=== PATIENT | female | born 1965 | race Caucasian/White ===

== ENCOUNTER → 2018-08-05 | Outpatient (CLI) | payer MEDICARE, OTHER ==
[2018-08-05 15:26] VITALS: BP 119/84; PULSE 86; TEMP 98.6; BMI 29.8
--- NOTE | 2018-08-05 16:40 | P.PN ---
Subjective Progress Note Date: 08/05/18 DATE OF SERVICE: 08/05/2018 REASON FOR CONSULTATION: Initial bariatric evaluation. HISTORY OF PRESENT ILLNESS: Nichole Duval is a 53-year-old female who comes with lack of restriction from her adjustable gastric band. No reports of nausea or vomiting. She presents to me first time in consultation. No reports of abdominal pain. She comes in with her band. She reports no restriction. At height of 5 feet 4 inches, her ideal body weight is 144 pounds. She comes in 174 pounds. Her body mass index is 29.6. She is 30 pounds overweight. PAST MEDICAL HISTORY: 1. Morbid obesity due to excess calories 2. Body mass index of 29.6 3. Gastroesophageal reflux disease 4. Hypertensive heart disease 5. Hyperlipidemia 6. Fibromyalgia 7. Peripheral neuropathy 8. History of MRSA 9. Discharge joint disease PAST SURGICAL HISTORY: 1. Panniculectomy 2. Cervical fusion 3. Lumbar fusion 4. LAP-BAND procedure, 2009 5. Left arthroscopic shoulder surgery HOME MEDICATIONS: ALLERGIES: Home Medications Medication Instructions Recorded Confirmed Atorvastatin [Lipitor] 80 mg PO DAILY 06/25/18 08/05/18 HYDROcodone/APAP 10-325MG [[place] 1 tab PO BID 06/25/18 08/05/18 10-325] Lisinopril-Hctz 20-25 mg 1 tab PO DAILY 06/25/18 08/05/18 [Zestoretic 20-25] Nortriptyline HCl [Pamelor] 50 mg PO HS 06/25/18 08/05/18 Ranitidine HCl 150 mg PO BID 06/25/18 08/05/18 tiaGABine HCL [Tiagabine HCl] 2 mg PO QAM 06/25/18 08/05/18 B,C/Folic/Zinc/Copper Ox/Vit E 1 each PO DAILY 08/05/18 08/05/18 [Stress B-Complex Tablet] Cetirizine HCl [Zyrtec] 10 mg PO DAILY 08/05/18 08/05/18 Cholecalciferol (Vitamin D3) 1,000 unit PO DAILY 08/05/18 08/05/18 [Vitamin D3] Magnesium Oxide [Mag-Ox] 250 mg PO DAILY 08/05/18 08/05/18 tiaGABine HCL [Tiagabine HCl] 4 mg PO HS 08/05/18 08/05/18 Allergies Allergy/AdvReac Type Severity Reaction Status Date / Time Penicillins Allergy Rash/Hives Verified 06/25/18 10:01 SOCIAL HISTORY: Past tobacco use. FAMILY HISTORY: No family history of ulcerative colitis disease or Crohn's disease. Family history of morbid obesity. No lupus in the family. No reports of stomach or esophageal cancer. REVIEW OF ORGAN SYSTEMS: CONSTITUTIONAL: At height of 5 feet 4 inches, her ideal body weight is 144 pounds. She comes in 174 pounds. Her body mass index is 29.6. She is 30 pounds overweight. HEENT: Denies any active troubles with vision or hearing. ENDOCRINE: Has diabetes. No hypothyroidism. CARDIOVASCULAR: Past reports of palpitations or heart attacks or chest pain. Has hypertension. RESPIRATORY: Has daytime somnolence. Has asthma. GASTROINTESTINAL: Denies any bright red blood per rectum. No diarrhea. No constipation. Has hyperlipidemia. MUSCULOSKELETAL: Has lower back pain and joint pain. Has osteoarthritis of the knees. NEURO: No headaches. No seizure disorders. PSYCH: Has depression. No suicidal ideation. RHEUMATOLOGIC: No lupus. No rheumatoid arthritis. HEMATOLOGIC: Denies any abnormal bleeding or bruising. No personal history of DVTs SKIN: No rash. No skin cancer. PHYSICAL EXAM: VITAL SIGNS: Height 5 foot 4 inches, weight 174 pounds. BMI 29.9 Vital Signs Temp 98.6 F 08/05/18 14:38 Pulse 86 08/05/18 14:38 Resp BP 119/84 08/05/18 14:38 Pulse Ox GENERAL: Well-developed in no acute distress. HEENT: No scleral icterus. Extraocular movements grossly intact. Hears conversational speech. No nasal drainage. NECK: Supple without lymphadenopathy. CHEST: Nonlabored respirations with equal bilateral excursions. CARDIOVASCULAR: Regular rate and regular rhythm. Distal 2+ pulses. ABDOMEN: Obese, soft, nontender, nondistended. Lap band port palpated along the left upper quadrant. MUSCULOSKELETAL: No clubbing, cyanosis. Gross strength 5/5 distal lower extremities. NEURO: No focal or lateralizing signs. Cranial nerves 2 through 12 grossly within normal limits. PSYCH: Appropriate affect. Alert and oriented to person, place and time. SKIN: Good skin turgor. Well perfused. ASSESSMENT: 1. Morbid obesity due to excess calories 2. Body mass index of 29.6 3. Gastroesophageal reflux disease 4. Hypertensive heart disease 5. Hyperlipidemia 6. Fibromyalgia 7. Peripheral neuropathy 8. History of MRSA 9. Discharge joint disease 10. Adjustable gastric band status PLAN: 1. Recommend band adjustment. PROCEDURE: After verbal consent, patient was laid supine. Adjustable gastric band was palpated at left upper quadrant. No erythema identified. Skin was cleansed with chloraprep. Using 22-gauge hueber needle, the band was access. While drinking water, her band was adjusted. Normal saline 3 mL of fluid was placed. She tolerated the procedure well. Thank you for this consultation. Objective - Vital Signs Vital signs: Vital Signs Temp 98.6 F 08/05/18 14:38 Pulse 86 08/05/18 14:38 Resp BP 119/84 08/05/18 14:38 Pulse Ox Intake & Output 08/04/18 08/05/18 08/05/18 18:59 06:59 18:59 Weight 78.925 kg
== END | disposition home or self-care (01) ==
LOC: BARWHC3 13:52
PROVIDERS: ATTEND Surgery Plastic and Reconstructive Surgery
DX: Z48.815 Encounter for surgical aftercare following surgery on the digestive system (principal); E66.01 Morbid (severe) obesity due to excess calories; Z68.29 Body mass index [BMI] 29.0-29.9, adult; K21.9 Gastro-esophageal reflux disease without esophagitis; E78.5 Hyperlipidemia, unspecified; M79.7 Fibromyalgia; G62.9 Polyneuropathy, unspecified; I11.9 Hypertensive heart disease without heart failure; M25.80 Other specified joint disorders, unspecified joint; Z86.14 Personal history of Methicillin resistant Staphylococcus aureus infection; Z98.84 Bariatric surgery status; Z72.0 Tobacco use; Z88.0 Allergy status to penicillin; Z79.899 Other long term (current) drug therapy; Z79.891 Long term (current) use of opiate analgesic
CPT/HCPCS: 99212

== ENCOUNTER → 2019-10-01 | Outpatient (CLI) | payer MEDICARE ==
[2019-10-01 13:35] LABS: HGB 13.8 gm/dL (11.4-16.0); MCH 27.6 pg (25.0-35.0); MCV 86.1 fL (80.0-100.0); Mean Platelet Volume 6.8; Platelet Count 293 k/uL (150-450); RDW 13.4 % (11.5-15.5); WBC 6.4 k/uL (3.8-10.6)
[2019-10-01 17:44] LABS: % Iron Saturation 24.51 (12.00-45.00); Albumin 4.5 g/dL (3.80-4.90); Albumin/Globulin Ratio 1.96 (1.60-3.17); Anion Gap 7.1 mmol/L (4.00-12.00); Calcium 9.4 mg/dL (8.7-10.3); Carbon Dioxide 28.9 mmol/L (21.6-31.8); Chol/HDL Ratio 4.93; Globulin 2.3 g/dL (1.6-3.3); Magnesium 1.8 mg/dL (1.5-2.4); Non-African American GFR(CKD) 64.7 (60.0-200.0); Phosphorus 3.5 mg/dL (2.4-5.1); Potassium 3.8 mmol/L (3.5-5.5); Total Bilirubin 0.5 mg/dL (0.3-1.2); Total Protein 6.8 g/dL (6.2-8.2)
[2019-10-01 17:51] LABS: Ferritin 62.8 ng/mL (10.0-291.0)
[2019-10-01 17:53] LABS: Folate, Serum 9.1 ng/mL
[2019-10-01 19:02] LABS: INR 0.93 (0.90-1.11); Partial Thromboplastin Time 29.4 sec (24.7-29.9)
[2019-10-02 04:18] LABS: Hemoglobin A1C 5.2 % (4.0-6.0)
[2019-10-04 15:20] LABS: Zinc, Serum 80 ug/dL (60-130)
[2019-10-05 10:02] LABS: Vitamin A 64 ug/dL (38-106)
[2019-10-06 12:41] LABS: Vit B1(Thiamine) 80 ug/L (38-122)
[2019-10-06 18:10] LABS: Selenium 101 mcg/L (63-160)
== END | disposition home or self-care (01) ==
LOC: LABWHC1 12:41
PROVIDERS: ATTEND Surgery Plastic and Reconstructive Surgery
DX: E21.1 Secondary hyperparathyroidism, not elsewhere classified (principal); E89.1 Postprocedural hypoinsulinemia; D50.9 Iron deficiency anemia, unspecified; K90.9 Intestinal malabsorption, unspecified; E55.9 Vitamin D deficiency, unspecified; K74.1 Hepatic sclerosis; N19 Unspecified kidney failure; K50.90 Crohn's disease, unspecified, without complications
CPT/HCPCS: 36415; 80053; 80061; 82306; 82525; 82607; 82728; 82746; 83036; 83540; 83550; 83735; 83970; 84100; 84134; 84255; 84425; 84443; 84590; 84630; 85027; 85610; 85730; 93005

== ENCOUNTER 2019-12-13 06:16 | Day surgery (SDC) | payer MEDICARE ==
[2019-12-08 09:53] VITALS: BMI 31.4
--- NOTE | 2019-12-13 04:33 | P.GSHP ---
History of Present Illness H&P Date: 12/13/19 DATE OF SERVICE: 12/13/2019 CHIEF COMPLAINT: Complications adjustable gastric band HISTORY OF PRESENT ILLNESS: Nichole Duval is a 54-year-old female who comes with complications from her adjustable gastric band including pain and intolerance to band adjustments. She had her band since 2009. Her highest weight was 230 pounds, BMI 39.6. Her total lifetime weight loss is 41 pounds, 48% excess weight loss, lifetime. At height of 5 feet 4 inches, her ideal body weight is 144 pounds. She comes in 189 pounds from 174 pounds, 1 year ago. She has gained 15 pounds in over 1 year. Her body mass index is 32.4. She is 45 pounds overweight. PAST MEDICAL HISTORY: 1. Morbid obesity due to excess calories 2. Body mass index 39.6, initial 3. Gastroesophageal reflux disease 4. Hypertensive heart disease 5. Hyperlipidemia 6. Fibromyalgia 7. Peripheral neuropathy 8. History of MRSA 9. Degenerative joint disease PAST SURGICAL HISTORY: 1. Panniculectomy 2. Cervical fusion 3. Lumbar fusion 4. LAP-BAND procedure, 2009 5. Left arthroscopic shoulder surgery HOME MEDICATIONS: ALLERGIES: Home Medications Medication Instructions Recorded Confirmed HYDROcodone/APAP 10-325MG [[place] 1 tab PO BID 06/25/18 12/08/19 10-325] Lisinopril-Hctz 20-25 mg 1 tab PO DAILY 06/25/18 12/08/19 [Zestoretic 20-25] Nortriptyline HCl [Pamelor] 50 mg PO HS 06/25/18 12/08/19 Fluticasone Nasal [place] [Flonase 2 spr EA NOSTRIL DIRECTED PRN 12/08/19 12/08/19 Nasal [place]] Loratadine [Claritin] 10 mg PO DAILY 12/08/19 12/08/19 Allergies Allergy/AdvReac Type Severity Reaction Status Date / Time Penicillins Allergy Rash/Hives Verified 12/08/19 09:41 SOCIAL HISTORY: Past tobacco use. FAMILY HISTORY: No family history of ulcerative colitis disease or Crohn's disease. Family history of morbid obesity. No lupus in the family. No reports of stomach or esophageal cancer. REVIEW OF ORGAN SYSTEMS: CONSTITUTIONAL: At height of 5 feet 4 inches, her ideal body weight is 144 pounds. She comes in 174 pounds. Her body mass index is 29.6. She is 30 pounds overweight. Highest weight 230 pounds. HEENT: Denies any active troubles with vision or hearing. ENDOCRINE: Has diabetes. No hypothyroidism. CARDIOVASCULAR: Past reports of palpitations or heart attacks or chest pain. Has hypertension. RESPIRATORY: Has daytime somnolence. Has asthma. GASTROINTESTINAL: Denies any bright red blood per rectum. No diarrhea. No co nstipation. Has hyperlipidemia. MUSCULOSKELETAL: Has lower back pain and joint pain. Has osteoarthritis of the knees. NEURO: No headaches. No seizure disorders. PSYCH: Has depression. No suicidal ideation. RHEUMATOLOGIC: No lupus. No rheumatoid arthritis. HEMATOLOGIC: Denies any abnormal bleeding or bruising. No personal history of DVTs SKIN: No rash. No skin cancer. PHYSICAL EXAM: VITAL SIGNS: Height 5 foot 4 inches, weight 189 pounds. BMI 39.6 GENERAL: Well-developed in no acute distress. HEENT: No scleral icterus. Extraocular movements grossly intact. Hears conversational speech. No nasal drainage. NECK: Supple without lymphadenopathy. CHEST: Nonlabored respirations with equal bilateral excursions. CARDIOVASCULAR: Regular rate and regular rhythm. Distal 2+ pulses. ABDOMEN: Obese, soft, nontender, nondistended. Lap band port palpated along the left upper quadrant. MUSCULOSKELETAL: No clubbing, cyanosis. NEURO: No focal or lateralizing signs. Cranial nerves 2 through 12 grossly within normal limits. PSYCH: Appropriate affect. Alert and oriented to person, place and time. SKIN: Good skin turgor. Well perfused. ASSESSMENT: 1. Morbid obesity due to excess calories 2. Body mass index 39.6, initial 3. Gastroesophageal reflux disease 4. Hypertensive heart disease 5. Hyperlipidemia 6. Fibromyalgia 7. Peripheral neuropathy 8. History of MRSA 9. Degenerative joint disease 10. Complications from adjustable gastric band PLAN: 1. With complications of her adjustable gastric band, recommend removal of all components. 2. Robotic laparoscopic approach advised. 3. DVT prophylaxis. 4. Antibiotic prophylaxis. Past Medical History Past Medical History: Fibromyalgia, GERD/Reflux, Hyperlipidemia, Hypertension, Neurologic Disorder, Osteoarthritis (OA) Additional Past Medical History / Comment(s): ddd, raynauds, peripheral neuropathy, fibromyalgia History of Any Multi-Drug Resistant Organisms: MRSA Date of last positivie culture/infection: 2011 MDRO Source:: panniculectomy incision Past Surgical History: Back Surgery, Bariatric Surgery, Hysterectomy, Orthopedic Surgery Additional Past Surgical History / Comment(s): lap band 2010 panniculectomy, ce rvical fusion x 6, lumbar fusion, arthroscopic right thumb & wrist, left shoulder, and bilateral ankle surgery, right toe, Past Anesthesia/Blood Transfusion Reactions: No Reported Reaction Smoking Status: Former smoker Medications and Allergies Home Medications Medication Instructions Recorded Confirmed Type HYDROcodone/APAP 10-325MG [[place] 1 tab PO BID 06/25/18 12/08/19 History 10-325] Lisinopril-Hctz 20-25 mg 1 tab PO DAILY 06/25/18 12/08/19 History [Zestoretic 20-25] Nortriptyline HCl [Pamelor] 50 mg PO HS 06/25/18 12/08/19 History Fluticasone Nasal [place] [Flonase 2 spr EA NOSTRIL DIRECTED PRN 12/08/19 12/08/19 History Nasal [place]] Loratadine [Claritin] 10 mg PO DAILY 12/08/19 12/08/19 History Allergies Allergy/AdvReac Type Severity Reaction Status Date / Time Penicillins Allergy Rash/Hives Verified 12/08/19 09:41
[~2019-12-13 06:16] MED LIST: ACETAMINOPHEN TAB 500 MG TAB PO STA; CHLORHEXIDINE GLUCONATE 15 ML CUP MUCOUS MEM ONE; DEXAMETHASONE SOD PHOSPHATE 10 MG/ML 1 ML VIAL IV STA; ENOXAPARIN 40 MG/0.4 ML SYRINGE SQ STA; GABAPENTIN 300 MG CAP PO STA; KETOROLAC 15 MG/ML 1 ML VIAL IVP PRN; LACTATED RINGERS 1,000 ML IV SCH; PANTOPRAZOLE 40 MG/10 ML VIAL IV STA; SCOPOLAMINE 1.5MG/72HR PATCH TRANSDERM STA; diphenhydrAMINE 50 MG/ML 1 ML VIAL IVP STA
--- NOTE | 2019-12-13 07:01 | P.HPADDEND ---
H&P Addendum H&P Addendum Date: 12/13/19 Robotic assisted approach reviewed. Abdominal wall block described for optimal pain management.
[2019-12-13] MEDS ORDERED: LIDOCAINE 1% (10MG/ML) FOR IV START INTRADERMA ONE (07:02)
[2019-12-13] MEDS ORDERED: ONDANSETRON 4 MG/2 ML VIAL ONE ×2 (07:06→11:10)
[2019-12-13] MEDS ORDERED: MIDAZOLAM 2 MG/2 ML VIAL IV ONE (07:11)
[2019-12-13] MEDS ORDERED: fentaNYL (PF) 50 MCG/ML 2 ML AMP IV ONE (07:11)
[2019-12-13 07:18] LABS: HCT 42.5 % (34.0-46.0); HGB 13.8 gm/dL (11.4-16.0); MCH 27.6 pg (25.0-35.0); MCHC 32.5 g/dL (31.0-37.0); MCV 84.9 fL (80.0-100.0); Mean Platelet Volume 7.1; Platelet Count 328 k/uL (150-450); RBC 5.01 m/uL (3.80-5.40); RDW 13.3 % (11.5-15.5)
--- NOTE | 2019-12-13 07:27 | P.ANPRN ---
Procedure Note - Anesthesia - Nerve Block Performed Bilateral Rectus Abdominis Single Time Out Performed: Yes Date of Procedure: 12/13/19 Procedure Start Time: :11 Procedure Stop Time: : Location of Patient: PreOp Indication: Requested by Surgeon Specifically requested for management of pain by DrElvia: Karis Booker Sedation Type: Sedate with meaningful contact maintained Preparation: Sterile Prep Position: Supine Needle Types: Pajunk Needle Gauge: 21 Ultrasound used to visualize needle placement: Yes Ultrasound used to observe medication spread: Yes Injectate: 0.5% Ropivacaine (see comment for volume) (15 ml per side plus Dexamethasone 4 mg) Blood Aspirated: No Pain Paresthesia on Injection Noted: No Resistance on Injection: Normal Image Stored and Saved: Yes Events: Uneventful and Well Tolerated
[2019-12-13 07:28] LABS: ALT 16 U/L (4-34); AST 26 U/L (14-36); African American GFR (CKD) >90 (>60 ml/min/1.73 sqM); Albumin 4.1 g/dL (3.5-5.0); Alkaline Phosphatase 129 U/L (38-126); Anion Gap 6 mmol/L; Blood Urea Nitrogen 18 mg/dL (7-17); Calcium 9.5 mg/dL (8.4-10.2); Carbon Dioxide 29 mmol/L (22-30); Chloride 107 mmol/L (98-107); Glucose 96 mg/dL (74-99); Non-African American GFR(CKD) 79 (>60 ml/min/1.73 sqM); Potassium 4.2 mmol/L (3.5-5.1); Sodium 142 mmol/L (137-145); Total Bilirubin 0.6 mg/dL (0.2-1.3); Total Protein 6.9 g/dL (6.3-8.2)
[2019-12-13] MEDS ORDERED: fentaNYL (PF) 50 MCG/ML 2 ML AMP ONE (07:32)
[2019-12-13] MEDS ORDERED: NEOSTIGMINE 1 MG/ML 10 ML VIAL ONE (07:32)
[2019-12-13] MEDS ORDERED: GLYCOPYRROLATE 0.2 MG/ML 2 ML VIAL ONE (07:32)
[2019-12-13] MEDS ORDERED: LIDOCAINE 1% INJ 10MG/ML (20 ML MDV) ONE (07:32)
[2019-12-13] MEDS ORDERED: SUCCINYLCHOLINE CHLORIDE 100 MG/5 ML SYR IV ONE (07:32)
[2019-12-13] MEDS ORDERED: LABETALOL 5 MG/ML VIAL MDV ONE (07:32)
[2019-12-13] MEDS ORDERED: ROCURONIUM BROMIDE 10 MG/ML 5 ML VIAL IV ONE (07:32)
[2019-12-13] MEDS ORDERED: PROPOFOL 10 MG/ML 20 ML VIAL IV ONE (07:32)
[2019-12-13] MEDS ORDERED: hydrALAZINE HCL 20 MG/ML 1 ML VIAL ONE (07:32)
[2019-12-13] MEDS ORDERED: LIDOCAINE 1%-EPI 1:100,000 20 ML VIAL SQ ONE (08:04)
[2019-12-13] MEDS ORDERED: LACTATED RINGERS 1,000 ML IV ONE ×2 (09:02→12:06)
[2019-12-13 09:15] VITALS: TEMP 97.9
[2019-12-13] MEDS ORDERED: ONDANSETRON 4 MG/2 ML VIAL IVP ONE ×2 (09:45→11:12)
[2019-12-13] MEDS ORDERED: PROMETHAZINE INJ 6.25 MG in SODIUM CHLORIDE 0.9% 50 ML IVPB PRN (11:28)
[2019-12-13] MEDS ORDERED: PROMETHAZINE INJ 25 MG/ML 1 ML VIAL IVPB ONE (11:57)
[2019-12-13] MEDS ORDERED: SUMAtriptan succinate 6 MG/0.5 ML VIAL SQ STA (12:03)
--- NOTE | 2019-12-13 12:47 | P.OP ---
Date of Procedure: 12/13/19 Description of Procedure: SURGEON: NIK ZHANG MD PREOPERATIVE DIAGNOSES: 1. Morbid obesity due to excess calories 2. Body mass index 39.6, initial 3. Gastroesophageal reflux disease 4. Hypertensive heart disease 5. Hyperlipidemia 6. Fibromyalgia 7. Peripheral neuropathy 8. History of MRSA 9. Degenerative joint disease 10. Complications from adjustable gastric band POSTOPERATIVE DIAGNOSES: 1. Morbid obesity due to excess calories 2. Body mass index 39.6, initial 3. Gastroesophageal reflux disease 4. Hypertensive heart disease 5. Hyperlipidemia 6. Fibromyalgia 7. Peripheral neuropathy 8. History of MRSA 9. Degenerative joint disease 10. Complications from adjustable gastric band 11. Gastritis 12. Retained food in stomach 13. Previous abdominoplasty 14. Dense perigastric band adhesions OPERATION: 1. Robotic-assisted da Landry Xi laparoscopic removal of adjustable gastric band and all components. 2. Intraoperative esophagogastroduodenoscopy with cold forceps biopsies along antrum. ANESTHESIA: General with local anesthetic. ESTIMATED BLOOD LOSS: 10 mL SPECIMENS REMOVED: 1. Adjustable gastric band and components 2. Antrum Condition: stable Disposition: same day COMPLICATIONS: None. Operative Findings: 1. Moderate adhesions along the epigastrium including 2. Allergan adjustable gastric band removed in total 3. Moderate retained food along gastric pouch, cardia and doudenum 4. Cold forceps biopsies along antrum for moderate gastritis 5. Dense capsular cicatrix along adjustable gastric band and port site INDICATIONS: The patient is a 54-year-old male who presents with complications of her adjustable gastric band. Surgical options were described including removal of the band. As she has persistent pain and discomfort from the band, removal of the adjustable gastric band and port including all components was proposed. Benefits and risks of the procedure were described including gastrotomy, leak, need for further surgery. Informed consent was obtained. DESCRIPTION: The patient was brought into the operating room theater. She was placed supine. She had received Lovenox subcutaneously for DVT prophylaxis. Additionally she Peridex oral solution as an oral decontaminant was placed per anesthesia. After general induction, the abdomen was prepped and draped in standard sterile fashion. Ioban draping was placed along the abdomen. A robotic da Landry Xi system was prepped and primed. Prior to incision, a timeout protocol was performed and confirmed with the surgical team. Attention was now brought to the intra-abdominal component of the procedure the removal of the adjustable gastric band. Incisions were proposed at 12 cm from the xiphoid. Proposed port sites were marked with indelible marker along the anterior axillary line bilaterally, mid clavicular line bilaterally with each port marked 10 cm from each other. A 5 mm 0 degrees laparoscopic trocar entry was performed along the left upper quadrant. The abdomen was insufflated to 15 mmHg pressure, which she tolerated well. Diagnostic laparoscopy demonstrated no injury to bowel, viscera, or mesentery. Moderate epigastric adhesions were identified along the upper midline. Four 8 mm trochars are placed along the upper abdomen, 12 cm distal to the xiphoid process. The family trocar was exchanged for a robotic trocar. The robot was docked along the left lateral abdomen. The patient was repositioned in reverse Trendelenburg position, 21-degrees. A 30-degree camera was used. Using a Prograsp for arm 3, including scissors with cautery for arm 1, the robotic system was docked and primed as described. Instruments were interchanged by the psych assistant. I had sat at the console. Moderate to severe adhesions along the epigastrium including right upper quadrant and greater omentum to abdominal wall was found. Adhesions were taken down using hook cautery to free these adhesions including around the adjustable gastric band. Dense cicatrix along the band was found and incised. The port was followed with its tubing to the gastric band. The gastrohepatic ligament was scarred from prior surgery. The ALLERGAN band was densely scarred however free from surrounding tissue. Using scissors with cautery, the cicatrix of the port was incised. The band was then freed. I then went to the head of the bed to perform intraoperative esophagogastroduodenoscopy to evaluate for gastritis and any full thickness injury to the stomach. An Olympus gastroscope was passed from the posterior oropharynx down to the esophagus, where the squamocolumnar junction was found LA grade A erosive esophagitis, chronic changes. The stomach was entered and retained food was found along the gastric cardia including duodenum. Moderate chronic gastritis was found along the antrum without gastric ulcers or duodenitis or duodenal ulcers. Retroflexion of the scope confirmed a Hill grade 1 lower esophageal valve. No full-thickness erosion from the prior band was encountered. Cold forcep biopsies weere obtained along the antrum. The stomach was desufflated. The patient tolerated the procedure well. No evidence of leak was encountered from the removal of the band. The scope was removed with desufflation of the stomach. The band was unbuckled and cut. The tubing was cut approximately 5 cm distal to the adapter. The band was removed in total without injury to the stomach. Hemostasis was excellent. I re-scrubbed into the case. The adjustable gastric band was removed from the abdominal cavity via the left upper abdomen. Diagnostic laparoscopy demonstrated complete removal of all foreign body. A transverse 3 cm incision was placed over the adjustable gastric band port site using #11 blade. The incision was deepened to the subcutaneous tissue using electrocautery Bovie cautery. The port was identified and circumferentially dissected free from the surrounding tissues. Once freed, the port was removed from the pocket and placed onto the skin. The port extraction site was hemostatic. The port site was irrigated using normal saline and hydrogen peroxide. The incisions were reapproximated using 4- 0 Monocryl in a subcuticular interrupted fashion. At the end of the procedure, needle, sponge and instrument counts were verified correct by the surgical services director. The patient had tolerated the procedure well. An abdominal binder was placed. The patient was transferred to Postanesthesia Care Unit in stable condition. Postoperative findings with intraoperative images were discussed with the patient who was pleased with the level of care. Her was updated over the telephone. Plan - Discharge Summary Discharge Rx Participant: Yes New Discharge Prescriptions: New Ibuprofen [Motrin] 600 mg PO Q8HR PRN #30 tab PRN Reason: Pain Continue Lisinopril-Hctz 20-25 mg [Zestoretic 20-25] 1 tab PO DAILY HYDROcodone/APAP 10-325MG [[place] 10-325] 1 tab PO BID Nortriptyline HCl [Pamelor] 50 mg PO HS Loratadine [Claritin] 10 mg PO DAILY Fluticasone Nasal [place] [Flonase Nasal [place]] 2 spr EA NOSTRIL DIRECTED PRN PRN Reason: allergies Discharge Medication List HYDROcodone/APAP 10-325MG [[place] 10-325] 1 tab PO BID 06/25/18 [History] Lisinopril-Hctz 20-25 mg [Zestoretic 20-25] 1 tab PO DAILY 06/25/18 [History] Nortriptyline HCl [Pamelor] 50 mg PO HS 06/25/18 [History] Fluticasone Nasal [place] [Flonase Nasal [place]] 2 spr EA NOSTRIL DIRECTED PRN 12/08/19 [History] Loratadine [Claritin] 10 mg PO DAILY 12/08/19 [History] Ibuprofen [Motrin] 600 mg PO Q8HR PRN #30 tab 12/13/19 [Rx] [facility]Ref[facility] [place] [facility]15[facility] 1:00 pm Patient Instructions/Handouts: *[facility] - Managing Your Pain After Surgery Without Opioids, *[facility] - (Anesthesia) Discharge Instructions Outpatient Surgery, Abdominal Binder (DC), Adjustable Gastric Band Removal (DC) Activity/Diet/Wound Care/Special Instructions: PLEASE NOTIFY YOUR PAIN SPECIALIST FOR MORE PAIN NARCOTICS. Wear abdominal binder at all times No lifting over 10 pounds in 2 weeks until Dec 26. May shower. No bath tub soaks for two weeks until Dec 26. Diet as tolerated. No driving while on narcotics. Use Tylenol and ibuprofen/Aleve scheduled for the next 24-48 hours for best pain relief. Use ice along incisions for the today to prevent swelling. Discharge Disposition: HOME SELF-CARE
[2019-12-13] MEDS ORDERED: TRIMETHOBENZAMIDE 100 MG/ML 2 ML VIAL IM STA (12:50)
[2019-12-13 13:13] VITALS: RESP 18
[2019-12-13 13:30] VITALS: BP 155/90; PULSE 78
== END 2019-12-13 14:01 | disposition home or self-care (01) ==
LOC: OR 06:16
PROVIDERS: ATTEND Surgery Plastic and Reconstructive Surgery
DX: K95.09 Other complications of gastric band procedure (principal); K21.0 Gastro-esophageal reflux disease with esophagitis; K29.50 Unspecified chronic gastritis without bleeding; K22.10 Ulcer of esophagus without bleeding; E66.01 Morbid (severe) obesity due to excess calories; I11.9 Hypertensive heart disease without heart failure; E78.5 Hyperlipidemia, unspecified; M19.90 Unspecified osteoarthritis, unspecified site; I73.00 Raynaud's syndrome without gangrene; M79.7 Fibromyalgia; G62.9 Polyneuropathy, unspecified; Z86.14 Personal history of Methicillin resistant Staphylococcus aureus infection; Z68.39 Body mass index [BMI] 39.0-39.9, adult; Z88.0 Allergy status to penicillin; Z90.710 Acquired absence of both cervix and uterus; Z98.84 Bariatric surgery status; Z79.891 Long term (current) use of opiate analgesic; Z98.1 Arthrodesis status; Z87.891 Personal history of nicotine dependence
CPT/HCPCS: 43774; 64488; 88305; 80053; 85027; 88300; J3030; J2250; J0360; J1200; J1100; J2550; J2710; J3250; J0690; J2405; J2001; J1650; J3010; J1885; J0330; J2704; C9113

== ENCOUNTER → 2019-12-22 | Outpatient (CLI) | payer MEDICARE ==
--- NOTE | 2019-12-22 10:22 | P.PN ---
Subjective Progress Note Date: 12/22/19 Patient is seen in [place]. She is one week out status post band removal. She At least 3 hours. She confirms eating more than 12 hours prior to her operation however still have moderate retained food. Recommend a gastric emptying study and 1 month at least after 30 days following her procedure. Likewise, recommend deferring any additional surgical interventions due to the severity of gastric scar tissue from her band. Patient agree with the care plan. Otherwise all incisions clean dry and intact. Incisions are granulating. No signs of infection or cellulitis. Follow-up in 1 month.
[2019-12-22 11:11] VITALS: BP 151/87; PULSE 83; TEMP 98.2; BMI 32.2
== END | disposition home or self-care (01) ==
LOC: BARWHC3 09:53
PROVIDERS: ATTEND Surgery Plastic and Reconstructive Surgery
DX: Z46.51 Encounter for fitting and adjustment of gastric lap band (principal); Z98.84 Bariatric surgery status
CPT/HCPCS: 99211

== ENCOUNTER → 2020-03-02 | Outpatient (CLI) | payer MEDICARE ==
[2020-03-02 13:10] LABS: Basophils % (A) 0 %; Eosinophils # (A) 0.1 k/uL (0-0.7); Eosinophils % (A) 2 %; HCT 44.6 % (34.0-46.0); HGB 14.5 gm/dL (11.4-16.0); Lymphocytes # (A) 2.1 k/uL (1.0-4.8); Lymphocytes % (A) 35 %; MCHC 32.5 g/dL (31.0-37.0); MCV 83.2 fL (80.0-100.0); Mean Platelet Volume 6.8; Monocytes # (A) 0.3 k/uL (0-1.0); Monocytes % (A) 5 %; Neutrophils # (A) 3.5 k/uL (1.3-7.7); Neutrophils % (A) 57 %; Platelet Count 300 k/uL (150-450); RBC 5.36 m/uL (3.80-5.40); RDW 13.5 % (11.5-15.5); WBC 6.1 k/uL (3.8-10.6)
[2020-03-02 13:15] LABS: Albumin 4.3 g/dL (3.5-5.0); Calcium 9.6 mg/dL (8.4-10.2); Potassium 4.3 mmol/L (3.5-5.1); Total Bilirubin 0.5 mg/dL (0.2-1.3); Total Protein 7.2 g/dL (6.3-8.2)
== END | disposition home or self-care (01) ==
LOC: LABPAT 11:41
PROVIDERS: ATTEND Surgery Plastic and Reconstructive Surgery
DX: Z01.818 Encounter for other preprocedural examination (principal)
CPT/HCPCS: 36415; 80053; 85025

== ENCOUNTER 2020-03-06 09:40 | Day surgery (SDC) | payer MEDICARE ==
[2020-03-02 14:35] VITALS: BMI 32.9
--- NOTE | 2020-03-06 01:23 | P.GSHP ---
History of Present Illness H&P Date: 03/06/20 CHIEF COMPLAINT: History of intra-abdominal adhesions HISTORY OF PRESENT ILLNESS: The patient is a 54-year-old female who presents with history of intra-abdominal adhesions from multiple prior surgeries including increasing abdominal pain. She now presents for diagnostic laparoscopy including lysis of adhesions. PAST MEDICAL HISTORY: Please see list. PAST SURGICAL HISTORY: Please see list. MEDICATIONS: Please see list. ALLERGIES: Please see list. SOCIAL HISTORY: No illicit drug use FAMILY HISTORY: No reports of Crohn disease or ulcerative colitis. REVIEW OF ORGAN SYSTEMS: CONSTITUTIONAL: No reports of fevers or chills. GI: Denies any blood in stools or constipation. PHYSICAL EXAM: VITAL SIGNS: Stable GENERAL: Well-developed pleasant and in no acute distress. HEENT: No scleral icterus. Extraocular movements grossly intact. Moist buccal mucosa. NECK: Supple without lymphadenopathy. CHEST: Unlabored respirations. Equal bilateral excursions. CARDIOVASCULAR: Regular rate and rhythm. Distal 2+ pulses. ABDOMEN: Soft, diffuse abdominal tenderness. No peritonitis. MUSCULOSKELETAL: No clubbing, cyanosis, or edema. ASSESSMENT: 1. Diffuse abdominal pain. 2. History of multiple abdominal surgeries. 3. Intra-abdominal adhesions. PLAN: 1. Robotic lysis of adhesions were described in detail including risk of injury to the intestine, need for further surgery, and open technique. 2. DVT prophylaxis. 3. Antibiotic prophylaxis. Past Medical History Past Medical History: Fibromyalgia, GERD/Reflux, Hyperlipidemia, Hypertension, Neurologic Disorder, Osteoarthritis (OA) Additional Past Medical History / Comment(s): ddd, raynauds, peripheral neuropathy, fibromyalgia, joint pain History of Any Multi-Drug Resistant Organisms: MRSA Date of last positivie culture/infection: 2011 MDRO Source:: panniculectomy incision Past Surgical History: Back Surgery, Bariatric Surgery, Hysterectomy, Orthopedic Surgery Additional Past Surgical History / Comment(s): lap band 2010 panniculectomy, cervical fusion x 6, lumbar fusion, arthroscopic right thumb & wrist, left shoulder, and bilateral ankle surgery, right toe, lap band removal 12-13-19 Past Anesthesia/Blood Transfusion Reactions: No Reported Reaction Smoking Status: Former smoker - Past Family History Father Family Medical History: Cancer Mother Family Medical History: Cancer Medications and Allergies Home Medications Medication Instructions Recorded Confirmed Type HYDROcodone/APAP 10-325MG [[place] 1 tab PO BID 06/25/18 03/02/20 History 10-325] Lisinopril-Hctz 20-25 mg 1 tab PO DAILY 06/25/18 03/02/20 History [Zestoretic 20-25] Nortriptyline HCl [Pamelor] 50 mg PO HS 06/25/18 03/02/20 History Fluticasone Nasal [place] [Flonase 2 spr EA NOSTRIL DIRECTED PRN 12/08/19 03/02/20 History Nasal [place]] Loratadine [Claritin] 10 mg PO DAILY 12/08/19 03/02/20 History Allergies Allergy/AdvReac Type Severity Reaction Status Date / Time Penicillins Allergy Rash/Hives Verified 03/02/20 14:25
[~2020-03-06 09:40] MED LIST changes: -CHLORHEXIDINE GLUCONATE 15 ML CUP MUCOUS MEM ONE; -DEXAMETHASONE SOD PHOSPHATE 10 MG/ML 1 ML VIAL IV STA; +DEXAMETHASONE SOD PHOSPHATE 4 MG/ML 1 ML VIAL IV ONE; -ENOXAPARIN 40 MG/0.4 ML SYRINGE SQ STA; -KETOROLAC 15 MG/ML 1 ML VIAL IVP PRN; +LIDOCAINE 1% (10MG/ML) FOR IV START INTRADERMA PRN; +MELOXICAM 7.5 MG TAB PO PRN; +MIDAZOLAM 2 MG/2 ML VIAL IV PRN; +ONDANSETRON 4 MG/2 ML VIAL IVP ONE; -PANTOPRAZOLE 40 MG/10 ML VIAL IV STA; -diphenhydrAMINE 50 MG/ML 1 ML VIAL IVP STA
[2020-03-06 10:16] VITALS: RESP 16
[2020-03-06] MEDS ORDERED: HEPARIN SODIUM,PORCINE 5,000 UNIT/ML 1 ML VIAL ONE (12:33)
[2020-03-06] MEDS ORDERED: LIDOCAINE 1% INJ 10MG/ML (20 ML MDV) ONE (12:35)
[2020-03-06] MEDS ORDERED: MIDAZOLAM 2 MG/2 ML VIAL ONE (12:35)
[2020-03-06] MEDS ORDERED: fentaNYL (PF) 50 MCG/ML 2 ML AMP ONE (12:35)
[2020-03-06] MEDS ORDERED: PROPOFOL 10 MG/ML 20 ML VIAL IV ONE (12:35)
[2020-03-06] MEDS ORDERED: ROCURONIUM 10 MG/ML (10 ML VIAL) IV ONE (12:35)
[2020-03-06] MEDS ORDERED: SUCCINYLCHOLINE CHLORIDE 100 MG/5 ML SYR IV ONE (12:35)
[2020-03-06] MEDS ORDERED: HEPARIN SODIUM,PORCINE 5,000 UNIT/ML 1 ML VIAL SQ ONE (12:35)
[2020-03-06] MEDS ORDERED: LABETALOL 5 MG/ML VIAL MDV ONE (12:35)
[2020-03-06] MEDS ORDERED: GLYCOPYRROLATE 0.2 MG/ML 2 ML VIAL ONE (12:35)
[2020-03-06] MEDS ORDERED: NEOSTIGMINE 1 MG/ML 10 ML VIAL ONE (12:35)
[2020-03-06] MEDS ORDERED: LIDOCAINE 1%-EPI 1:100,000 20 ML VIAL SQ ONE (13:04)
[2020-03-06] MEDS ORDERED: LACTATED RINGERS 1,000 ML IV ONE (13:26)
[2020-03-06] MEDS ORDERED: HYDROcodone/APAP 10-325MG 1 EACH TAB PO PRN (13:38)
[2020-03-06] MEDS ORDERED: KETOROLAC 15 MG/ML 1 ML VIAL IVP PRN (13:38)
--- NOTE | 2020-03-06 13:43 | P.OP ---
Date of Procedure: 03/06/20 Description of Procedure: SURGEON: NIK ZHANG MD PREOPERATIVE DIAGNOSES: 1. Generalized abdominal pain 2. History of multiple abdominal surgeries 3. History of peritoneal adhesions 4. Fibromyalgia with chronic pain syndrome 5. History of adjustable gastric band status post removal 6. Peripheral neuropathy 7. Degenerative joint disc disease POSTOPERATIVE DIAGNOSES: 1. Generalized abdominal pain 2. History of multiple abdominal surgeries 3. History of peritoneal adhesions 4. Fibromyalgia with chronic pain syndrome 5. History of adjustable gastric band status post removal 6. Peripheral neuropathy 7. Degenerative joint disc disease OPERATION: 1. Robotic-assisted da Landry Xi laparoscopic with lysis of adhesions ESTIMATED BLOOD LOSS: 5 mL. SPECIMENS REMOVED: None. COMPLICATIONS: None. OPERATIVE FINDINGS: 1. Abdominal wall peritoneal adhesions involving the periumbilical area with adhesions lysed of greater omentum to the abdominal wall INDICATIONS: The patient is a 54-year-old female who presents with chronic pain syndrome including abdominal pain and history of multiple abdominal procedures. Surgical intervention with diagnostic laparoscopy, lysis of adhesions were described. Informed consent was obtained. Robotic assisted laparoscopic appr oach was described. Benefits and risks of the procedure including but not limited to bleeding, infection was described. Informed consent was obtained. DESCRIPTION OF PROCEDURE: Patient was brought to the operating room, placed in supine position. After general induction, the abdomen had been prepped and draped in standard sterile fashion. The robotic da Landry XI system was primed. After a timeout protocol was performed, the patient had been prepped and draped in standard sterile fashion. The robot was docked along the left lateral abdomen. Please note prior to docking of the robot; however, a 5 mm 0 degrees laparoscopic trocar entry was performed along the left upper quadrant. Next, three 8 mm robotic ports were placed along the left lateral abdominal wall abdomen. Trochars were placed at least 10 to 15 cm away from the target anatomy. Instruments including graspers and scissors with vessel sealer were interchanged by the engineer second assistant. I had sat at the console. Greater omental adhesion to the mid abdominal wall was identified and sharply divided using vessel sealer until completely clear. Hemostasis was checked. No moderate adhesions were identified along the liver to the stomach. No large or small bowel obstruction was identified. The robot was undocked. All pneumoperitoneum and instruments were evacuated from the abdominal cavity. The incisions were reapproximated using 4-0 Monocryl in an interrupted subcuticular fashion. Please note along the trocar sites, local anesthetic was placed as a field block prior to insertion of all instruments. Exofin was applied to the skin. At the end of the procedure needle, sponge, and instrument count had been verified correct by the screening technician. The patient was transferred to postanesthesia care unit in stable condition. Plan - Discharge Summary Discharge Rx Participant: Yes New Discharge Prescriptions: Continue Lisinopril-Hctz 20-25 mg [Zestoretic 20-25] 1 tab PO DAILY HYDROcodone/APAP 10-325MG [[place] 10-325] 1 tab PO BID Nortriptyline HCl [Pamelor] 50 mg PO HS Loratadine [Claritin] 10 mg PO DAILY Fluticasone Nasal [place] [Flonase Nasal [place]] 2 spr EA NOSTRIL DIRECTED PRN PRN Reason: allergies Discharge Medication List HYDROcodone/APAP 10-325MG [[place] 10-325] 1 tab PO BID 06/25/18 [History] Lisinopril-Hctz 20-25 mg [Zestoretic 20-25] 1 tab PO DAILY 06/25/18 [History] Nortriptyline HCl [Pamelor] 50 mg PO HS 06/25/18 [History] Fluticasone Nasal [place] [Flonase Nasal [place]] 2 spr EA NOSTRIL DIRECTED PRN 12/08/19 [History] Loratadine [Claritin] 10 mg PO DAILY 12/08/19 [History] Follow up Appointment(s)/Ref[facility] [place] [facility] - 03/15/20 Patient Instructions/Handouts: Lysis of Abdominal Adhesions (DC) Activity/Diet/Wound Care/Special Instructions: Use antibacterial soap. No lifting over 10 pounds 2 weeks, Mar 20July shower. No bathtub soaks for 2 weeks, Mar 20 Wear abdominal binder daily for comfort except for showering. Use ice along incisions for the today to prevent swelling. Discharge Disposition: HOME SELF-CARE
[2020-03-06 13:55] VITALS: TEMP 97.9
[2020-03-06] MEDS ORDERED: hydrALAZINE HCL 20 MG/ML 1 ML VIAL IV ONE (14:02)
[2020-03-06] MEDS: HYDROmorphone 0.5 MG/0.5 ML SYRINGE IVP PRN ×2 (14:07→14:20)
[2020-03-06 15:16] VITALS: BP 154/87; PULSE 84
== END 2020-03-06 15:53 | disposition home or self-care (01) ==
LOC: OR 09:40
PROVIDERS: ATTEND Surgery Plastic and Reconstructive Surgery
DX: K66.0 Peritoneal adhesions (postprocedural) (postinfection) (principal); I10 Essential (primary) hypertension; M79.7 Fibromyalgia; G89.4 Chronic pain syndrome; G62.9 Polyneuropathy, unspecified; K21.9 Gastro-esophageal reflux disease without esophagitis; E78.5 Hyperlipidemia, unspecified; M19.90 Unspecified osteoarthritis, unspecified site; I73.00 Raynaud's syndrome without gangrene; Z86.14 Personal history of Methicillin resistant Staphylococcus aureus infection; Z87.891 Personal history of nicotine dependence; Z98.84 Bariatric surgery status; Z90.710 Acquired absence of both cervix and uterus; Z98.890 Other specified postprocedural states; Z80.9 Family history of malignant neoplasm, unspecified; Z79.899 Other long term (current) drug therapy; Z88.0 Allergy status to penicillin
CPT/HCPCS: 44180; J2250; J0360; J1644; J1100; J2710; J0690; J2405; J2001; J3010; J1885; J0330; J2704; J1170

== ENCOUNTER → 2020-03-15 | Outpatient (CLI) | payer MEDICARE ==
--- NOTE | 2020-03-15 14:27 | P.PN ---
Subjective Progress Note Date: 03/15/20 She reports no moderate pain. She had lysis of adhesions. She is s/p band removal. PLAN: 1. Ideally band to bypass. 2. She wants to loss more weight 3. For reflux
[2020-03-15 14:58] VITALS: BP 177/90; PULSE 80; TEMP 98.3; BMI 32.5
== END | disposition home or self-care (01) ==
LOC: BARWHC3 13:31
PROVIDERS: ATTEND Surgery Plastic and Reconstructive Surgery
DX: Z48.815 Encounter for surgical aftercare following surgery on the digestive system (principal); Z98.84 Bariatric surgery status
CPT/HCPCS: 99211

== ENCOUNTER 2022-07-12 19:58 | Emergency (ER) | payer MEDICARE ==
[2022-07-12 20:29] VITALS: RESP 18; TEMP 97.9
[2022-07-12] MEDS ORDERED: ONDANSETRON 4 MG/2 ML VIAL IVP STA (20:41)
[2022-07-12] MEDS ORDERED: SODIUM CHLORIDE 0.9% 1,000 ML IV STA (20:41)
[2022-07-12] MEDS ORDERED: diphenhydrAMINE 50 MG/ML 1 ML VIAL IVP STA (21:11)
[2022-07-12] MEDS ORDERED: KETOROLAC 15 MG/ML 1 ML VIAL IVP STA (21:11)
[2022-07-12 21:20] VITALS: BP 166/85; PULSE 75
[2022-07-12 21:50] LABS: Basophils % (A) 0 %; Eosinophils % (A) 0 %; HGB 14.2 gm/dL (11.4-16.0); Lymphocytes # (A) 0.8 k/uL (1.0-4.8); Lymphocytes % (A) 11 %; MCH 28.2 pg (25.0-35.0); MCHC 33.8 g/dL (31.0-37.0); MCV 83.4 fL (80.0-100.0); Mean Platelet Volume 7.6; Monocytes # (A) 0.2 k/uL (0-1.0); Monocytes % (A) 3 %; Neutrophils # (A) 6.1 k/uL (1.3-7.7); Neutrophils % (A) 85 %; Platelet Count 302 k/uL (150-450); RBC 5.04 m/uL (3.80-5.40); RDW 13.6 % (11.5-15.5); WBC 7.2 k/uL (3.8-10.6)
[2022-07-12 22:02] LABS: ALT 19 U/L (4-34); AST 26 U/L (14-36); African American GFR (CKD) >90 (>60 ml/min/1.73 sqM); Albumin 4.3 g/dL (3.5-5.0); Alkaline Phosphatase 114 U/L (38-126); Anion Gap 7 mmol/L; Blood Urea Nitrogen 16 mg/dL (7-17); Calcium 9.3 mg/dL (8.4-10.2); Carbon Dioxide 27 mmol/L (22-30); Chloride 100 mmol/L (98-107); Glucose 122 mg/dL (74-99); Lipase 75 U/L (23-300); Non-African American GFR(CKD) >90 (>60 ml/min/1.73 sqM); Potassium 4.6 mmol/L (3.5-5.1); Sodium 134 mmol/L (137-145); Total Bilirubin 0.6 mg/dL (0.2-1.3); Total Protein 6.9 g/dL (6.3-8.2)
--- NOTE | 2022-07-12 23:07 | ED ---
Nausea/Vomiting/Diarrhea HPI - General Chief complaint: Nausea/Vomiting/Diarrhea Stated complaint: nausea,headache Time Seen by Provider: 07/12/22 20:40 Source: patient Mode of arrival: ambulatory Limitations: no limitations - History of Present Illness Initial comments: Patient is a 57-year-old female who presents to the emergency department for nausea and vomiting. Patient had a radiofrequency ablation procedure on her neck today in [facility]. Patient states she has not felt well since the procedure she has been very nauseous and has had 3 episodes of vomiting. She denies any fever, abdominal pain. Patient did get Dilaudid prior to the proc edure which she states she has not had in several years. Patient reports mild headache and pain in her neck. She was given [place] and has not taken any. She denies any significant pain with neck movement. No blurry vision, double vision, chest pain, shortness of breath. No recent falls or head trauma. - Related Data Home Medications Medication Instructions Recorded Confirmed HYDROcodone/APAP 10-325MG [[place] 1 tab PO BID 06/25/18 03/16/20 10-325] Lisinopril-Hctz 20-25 mg 1 tab PO DAILY 06/25/18 03/16/20 [Zestoretic 20-25] Nortriptyline HCl [Pamelor] 50 mg PO HS 06/25/18 03/16/20 Fluticasone Nasal [place] [Flonase 2 spr EA NOSTRIL DIRECTED PRN 12/08/19 03/16/20 Nasal [place]] Loratadine [Claritin] 10 mg PO DAILY 12/08/19 03/16/20 Previous Rx's Medication Instructions Recorded Ibuprofen [Motrin] 800 mg PO Q8HR PRN #30 tab 07/12/22 Ondansetron Odt [Zofran Odt] 4 mg PO Q8HR PRN #10 tab 07/12/22 Allergies Allergy/AdvReac Type Severity Reaction Status Date / Time Penicillins Allergy Rash/Hives Verified 03/06/20 10:02 Review of Systems ROS Statement: Those systems with pertinent positive or pertinent negative responses have been documented in the HPI. ROS Other: All systems not noted in ROS Statement are negative. Past Medical History Past Medical History: Fibromyalgia, GERD/Reflux, Hyperlipidemia, Hypertension, Neurologic Disorder, Osteoarthritis (OA) Additional Past Medical History / Comment(s): ddd, raynauds, peripheral neuropathy, fibromyalgia History of Any Multi-Drug Resistant Organisms: MRSA Date of last positivie culture/infection: 2011 MDRO Source:: panniculectomy incision Past Surgical History: Back Surgery, Bariatric Surgery, Hysterectomy, Orthopedic Surgery Additional Past Surgical History / Comment(s): lap band 2010 panniculectomy, cervical fusion x 6, lumbar fusion, arthroscopic right thumb & wrist, left shoulder, and bilateral ankle surgery, right toe, lap band removal 12-13-19 Past Anesthesia/Blood Transfusion Reactions: No Reported Reaction Past Psychological History: No Psychological Hx Reported Smoking Status: Former smoker Past Alcohol Use History: Rare Past Drug Use History: None Reported General Exam Limitations: no limitations General appearance: alert, in no apparent distress Head exam: Present: atraumatic, normocephalic, normal inspection Eye exam: Present: normal appearance, PERRL, EOMI. Absent: scleral icterus, conjunctival injection, periorbital swelling Neck exam: Present: full ROM. Absent: normal inspection (Ablation punctures present no significant erythema. No warmth or tenderness.), tenderness, meningismus, lymphadenopathy Respiratory exam: Present: normal lung sounds bilaterally. Absent: respiratory distress, wheezes, rales, rhonchi, stridor Cardiovascular Exam: Present: regular rate, normal rhythm, normal heart sounds. Absent: systolic murmur, diastolic murmur, rubs, gallop, clicks GI/Abdominal exam: Present: soft, normal bowel sounds. Absent: distended, tenderness, guarding, rebound, rigid Neurological exam: Present: alert, oriented X3, CN II-XII intact Psychiatric exam: Present: normal affect, normal mood Skin exam: Present: warm, dry, intact, normal color. Absent: rash Course Vital Signs 07/12/22 07/12/22 20:21 21:18 Temperature 97.9 F 97.9 F Pulse Rate 79 75 Respiratory 18 18 Rate Blood Pressure 153/99 166/85 O2 Sat by Pulse 98 98 Oximetry Medical Decision Making - Medical Decision Making Was pt. sent in by a medical professional or institution (, PA, MATERIALS ANALYST, urgent care, hospital, or jail...) When possible be specific @ -No Did you speak to anyone other than the patient for history (EMS, parent, family, police, friend...)? What history was obtained from this source @ -No Did you review nursing and triage notes (agree or disagree)? Why? @ -I reviewed and agree with nursing and triage notes Were old charts reviewed (outside hosp., previous admission, EMS record, old EKG, old radiological studies, urgent care reports/EKG's, jail records)? Report findings @ -No old charts were reviewed Differential Diagnosis (chest pain, altered mental status, abdominal pain women, abdominal pain men, vaginal bleeding, weakness, fever, dyspnea, syncope, headache, dizziness, GI bleed, back pain, seizure, CVA, palpatations, mental health)? @ -Migraine, URI, medication reaction. This list is not on 3 all-inclusive. EKG interpreted by me (3pts min.). @ -As above X-rays interpreted by me (1pt min.). @ -None done CT interpreted by me (1pt min.). @ -None done U/S interpreted by me (1pt. min.). @ -None done What testing was considered but not performed or refused? (CT, X-rays, U/S, labs)? Why? @ -None What meds were considered but not given or refused? Why? @ -None Did you discuss the management of the patient with other professionals (professionals i.e. , PA, MATERIALS ANALYST, lab, RT, psych nurse, manager social, java programmer, teacher, public health officer, supervisor case loading)? Give summary @ -No Was smoking cessation discussed for >3mins.? @ -No Was critical care preformed (if so, how long)? @ -No Were there social determinants of health that impacted care today? How? (Homelessness, low income, unemployed, alcoholism, drug addiction, transportation, low edu. Level, literacy, decrease access to med. care, fci, rehab)? @ -No Was there de-escalation of care discussed even if they declined (Discuss DNR or withdrawal of care, Hospice)? DNR status @ -No What co-morbidities impacted this encounter? (DM, HTN, Smoking, COPD, CAD, Cancer, CVA, ARF, Chemo, Hep., AIDS, mental health diagnosis, sleep apnea, morbid obesity)? @ -None Was patient admitted / discharged? Hospital course, mention meds given and route, prescriptions, significant lab abnormalities, going to OR and other pertinent info. @ -Patient presenting with nausea and vomiting after procedure. Patient afebrile, hemodynamically stable. She has a mild headache which was treated with migraine cocktail improved. She was given nausea medication and did not have any further episodes of vomiting in the emergency department. Labs are unremarkable patient did receive a fluid bolus and is feeling better she will be discharged home with Zofran Undiagnosed new problem with uncertain prognosis? @ -No Drug Therapy requiring intensive monitoring for toxicity (Heparin, Nitro, Insul in, Cardizem)? @ -No Were any procedures done? @ -No Diagnosis/symptom? @ -Nausea and vomiting, headache Acute, or Chronic, or Acute on Chronic? @ -Acute Uncomplicated (without systemic symptoms) or Complicated (systemic symptoms)? @ -Uncomplicated Side effects of treatment? @ -No Exacerbation, Progression, or Severe Exacerbation? @ -No Poses a threat to life or bodily function? How? (Chest pain, [place], [place], pneumonia, PE, COPD, DKA, ARF, appy, cholecystitis, CVA, Diverticulitis, Homicidal, Suicidal, threat to staff... and all critical care pts) @ -No Dr. Lozada is my attending - Lab Data Result diagrams: 07/12/22 21:05 07/12/22 21:05 Lab Results 07/12/22 07/12/22 07/12/22 Range/Units 21:05 21:05 22:36 WBC 7.2 (3.8-10.6) k/uL RBC 5.04 (3.80-5.40) m/uL Hgb 14.2 (11.4-16.0) gm/dL Hct 42.0 (34.0-46.0) % MCV 83.4 (80.0-100.0) fL MCH 28.2 (25.0-35.0) pg MCHC 33.8 (31.0-37.0) g/dL RDW 13.6 (11.5-15.5) % Plt Count 302 (150-450) k/uL MPV 7.6 Neutrophils % 85 % Lymphocytes % 11 % Monocytes % 3 % Eosinophils % 0 % Basophils % 0 % Neutrophils # 6.1 (1.3-7.7) k/uL Lymphocytes # 0.8 L (1.0-4.8) k/uL Monocytes # 0.2 (0-1.0) k/uL Eosinophils # 0.0 (0-0.7) k/uL Basophils # 0.0 (0-0.2) k/uL Sodium 134 L (137-145) mmol/L Potassium 4.6 (3.5-5.1) mmol/L Chloride 100 (98-107) mmol/L Carbon Dioxide 27 (22-30) mmol/L Anion Gap 7 mmol/L BUN 16 (7-17) mg/dL Creatinine 0.73 (0.52-1.04) mg/dL Est GFR (CKD-EPI)AfAm >90 (>60 ml/min/1.73 sqM) Est GFR (CKD-EPI)NonAf >90 (>60 ml/min/1.73 sqM) Glucose 122 H (74-99) mg/dL Calcium 9.3 (8.4-10.2) mg/dL Total Bilirubin 0.6 (0.2-1.3) mg/dL AST 26 (14-36) U/L ALT 19 (4-34) U/L Alkaline Phosphatase 114 (38-126) U/L Total Protein 6.9 (6.3-8.2) g/dL Albumin 4.3 (3.5-5.0) g/dL Lipase 75 (23-300) U/L Urine Color Yellow Urine Appearance Clear (Clear) Urine pH 7.0 (5.0-8.0) Ur Specific [place] 1.022 (1.001-1.035) Urine Protein Trace H (Negative) Urine Glucose (UA) Negative (Negative) Urine Ketones Negative (Negative) Urine Blood Negative (Negative) Urine Nitrite Negative (Negative) Urine Bilirubin Negative (Negative) Urine Urobilinogen <2.0 (<2.0) mg/dL Ur Leukocyte Esterase Negative (Negative) Disposition Clinical Impression: Headache, Nausea and vomiting Disposition: HOME SELF-CARE Condition: Good Instructions (If sedation given, give patient instructions): Acute Nausea and Vomiting (ED) Additional Instructions: Take medication as directed. Increase fluid intake as tolerated. Follow-up with your specialist on Friday. Return to the emergency department if you experience new, concerning, or worsening symptoms. Prescriptions: Ibuprofen [Motrin] 800 mg PO Q8HR PRN #30 tab PRN Reason: Pain Ondansetron Odt [Zofran Odt] 4 mg PO Q8HR PRN #10 tab PRN Reason: Nausea Is patient prescribed a controlled substance at d/c from ED?: No Referrals: Nonstaff,Physician [Primary Care Provider] - 1-2 days
[2022-07-12 23:15] LABS: Appearance,Urine Clear (Clear); Bilirubin,Urine Negative (Negative); Blood,Urine Negative (Negative); Color,Urine Yellow; Glucose,Urine (UA) Negative (Negative); Ketones,Urine Negative (Negative); Leukocyte Esterase,Urine Negative (Negative); Nitrite,Urine Negative (Negative); Protein,Urine Trace (Negative); Specific Gravity,Urine 1.022 (1.001-1.035); Urobilinogen,Urine <2.0 mg/dL (<2.0)
== END 2022-07-13 | disposition home or self-care (01) ==
LOC: EC 19:58
DX: R11.2 Nausea with vomiting, unspecified (principal); R51.9 Headache, unspecified; I10 Essential (primary) hypertension; M19.90 Unspecified osteoarthritis, unspecified site; M79.7 Fibromyalgia; Z79.899 Other long term (current) drug therapy; Z88.0 Allergy status to penicillin; Z87.891 Personal history of nicotine dependence
CPT/HCPCS: 36415; 80053; 83690; 85025; 81003; 99284; 96374; 96375 ×2; 96361 ×3; J1200; J2405; J1885